=== PATIENT | female | born 1995 | race Caucasian/White ===

== ENCOUNTER 2018-02-12 20:20 | Observation (INO) | payer BC ==
--- NOTE | 2018-02-12 20:34 | PDOC ---
Rapid Medical Evaluation Time Seen by Provider: 02/12/18 20:28 Medical Evaluation: Allergies Allergy/AdvReac Type Severity Reaction Status Date / Time No Known Allergies Allergy Verified 12/02/15 02:22 02/12/18 20:34 I have performed a brief in-person evaluation of this patient. The patient presents with a chief complaint of: SWELLING and pain to 2 lesions on arms- right arm with core/ left upper arm Pertinent physical exam findings: SWOLLEN / RED AND FIRM LESION TO RIGHT FOREARM with streaking up past elbow. Sensation intact I have ordered the following: CBC, cmp/ Upreg The patient will proceed to the ED for further evaluation. 02/12/18 20:37
[2018-02-12 21:24] LABS: BASO % 0.4 % (0-2.0); EOS % 2.9 % (0-4.5); HEMATOCRIT 42.2 % (32.4-45.2); HEMOGLOBIN 14.6 GM/dL (10.7-15.3); LYMPH % 36.8 % (8-40); MCH 30.5 pg (25.7-33.7); MCHC 34.6 g/dl (32.0-36.0); MEAN CELL VOLUME 88.1 fl (80-96); MEAN PLT VOLUME 9.4 fl (7.5-11.1); MONO % 8.8 % (3.8-10.2); NEUT % 51.1 % (42.8-82.8); PLATELET COUNT 255 K/MM3 (134-434); RBC 4.79 M/mm3 (3.60-5.2); RDW 12.8 % (11.6-15.6); WHITE BLOOD COUNT 8.9 K/mm3 (4.0-10.0)
[2018-02-12 21:56] LABS: ALBUMIN 4.2 g/dl (3.4-5.0); ANION GAP 5 (8-16); BLOOD UREA NITROGEN 10 mg/dL (7-18); CALCIUM 8.7 mg/dL (8.5-10.1); CHLORIDE 106 mmol/L (98-107); CO2 28 mmol/L (21-32); CREATININE 0.8 mg/dL (0.55-1.02); GLUCOSE,RANDOM 115 mg/dL (74-106); POTASSIUM 3.8 mmol/L (3.5-5.1); SGOT/AST 16 U/L (15-37); SGPT/ALT 20 U/L (12-78); SODIUM 139 mmol/L (136-145)
[2018-02-12] MEDS ORDERED: ACETAMINOPHEN 1000 MG/100 ML VIAL (NON FORMULARY) IVPB ONE (21:57)
[2018-02-12] MEDS ORDERED: CLINDAMYCIN IVPB 300 MG in DEXTROSE 5%-WATER - 48 ML IVPB ONE (21:57)
[2018-02-12] MEDS ORDERED: SODIUM CHLORIDE 1,000 ML IV STA (21:57)
[2018-02-12 21:58] LABS: ALK PHOS 86 U/L (45-117); BILIRUBIN,TOTAL 0.3 mg/dL (0.2-1.0); TOT PROT 7.7 g/dl (6.4-8.2)
[2018-02-12] MEDS ORDERED: ACETAMINOPHEN INJECTION 100 ML IVPB ONE (22:09)
--- NOTE | 2018-02-12 23:15 | PDOC ---
History of Present Illness <Rock Vela - Last Filed: 02/13/18 00:15> - History of Present Illness Initial Comments: 02/12/18 23:11 "The patient is a 22 year old female, with no significant past medical history, who presents to the emergency department with, a rash on her right forearm and left arm. As per patient, she woke up this morning with a rash and swelling to her right forearm which has since been worsening and streaking upward. She describes her right arm to feel like deadweight with mild itchiness and pain. She reports when leaving to come into the ED she noticed another rash on her left arm which is the shape of a starfish. She reports two weeks ago she had similar symptoms on her face and collarbone which she went to an urgent care for and was given an unknown topical cream and Benadryl. Pt denies seeing any insects. Denies any new medications/soaps/detergents. Denies h/o allergies. She denies any recent outdoor activity. She denies any recent injury. She denies recent fevers, chills, headache or dizziness. She denies recent nausea, vomit, diarrhea or constipation. She denies recent dysuria, frequency, urgency or hematuria. She denies recent chest pain or shortness of breath. Allergies: NKA Past surgical history: None reported. Social history: Nonsmoker. Denies EtOH use and recreational drug use. " <Ramesh Jon - Last Filed: 02/13/18 02:30> - General Chief Complaint: Rash Stated Complaint: RASH Time Seen by Provider: 02/12/18 20:28 Past History <Rock Vela - Last Filed: 02/13/18 00:15> - Past Medical History COPD: No Disorders: (dysmennorrhea and irregular menses) - Immunization History Immunization Up to Date: Yes - Suicide/Smoking/Psychosocial Hx Smoking History: Never smoked Hx Alcohol Use: No Substance Use Type: None <Ramesh Jon - Last Filed: 02/13/18 02:30> - Past Medical History Allergies/Adverse Reactions: Allergies Allergy/AdvReac Type Severity Reaction Status Date / Time No Known Allergies Allergy Verified 12/02/15 02:22 Home Medications: Ambulatory Orders NK [No Known Home Medication] 02/13/18 Review of Systems - Review of Systems Comments:: 02/12/18 23:12 "GENERAL/CONSTITUTIONAL: No fever or chills. No weakness. HEAD, EYES, EARS, NOSE AND THROAT: No change in vision. No ear pain or discharge. No sore throat. CARDIOVASCULAR: No chest pain or shortness of breath. RESPIRATORY: No cough, wheezing, or hemoptysis. GASTROINTESTINAL: No nausea, vomiting, diarrhea or constipation. GENITOURINARY: No dysuria, frequency, or change in urination. MUSCULOSKELETAL: No joint or muscle swelling or pain. No neck or back pain. +SKIN: Rash on right forearm and left arm. NEUROLOGIC: No headache, vertigo, loss of consciousness, or change in strength/ sensation. ENDOCRINE: No increased thirst. No abnormal weight change. HEMATOLOGIC/LYMPHATIC: No anemia, easy bleeding, or history of blood clots. ALLERGIC/IMMUNOLOGIC: No hives or skin allergy. " <Ramesh Jon - Last Filed: 02/13/18 02:30> *Physical Exam - Vital Signs Last Vital Signs Temp Pulse Resp BP Pulse Ox 98.4 F 91 H 18 124/71 99 02/12/18 23:42 02/12/18 23:42 02/12/18 23:42 02/12/18 23:42 02/12/18 23:42 <Rock Vela - Last Filed: 02/13/18 00:15> - Vital Signs Last Vital Signs Temp Pulse Resp BP Pulse Ox 99.7 F H 132 H 18 143/95 97 02/12/18 20:32 02/12/18 20:32 02/12/18 20:32 02/12/18 20:32 02/12/18 20:32 - Physical Exam Comments: 02/12/18 23:13 "GENERAL: Awake, alert, and fully oriented, in no acute distress. HEAD: No signs of trauma EYES: PERRLA, EOMI, sclera anicteric, conjunctiva clear ENT: Auricles normal inspection, hearing grossly normal, nares patent, oropharynx clear without exudates. Moist mucosa NECK: Nontender, no stepoffs, Normal ROM, supple, no lymphadenopathy, JVD, or masses LUNGS: Breath sounds equal, clear to auscultation bilaterally. No wheezes, and no crackles HEART: Regular rate and rhythm, normal S1 and S2, no murmurs, rubs or gallops ABDOMEN: Soft, nontender, normoactive bowel sounds. No guarding, no rebound. No masses EXTREMITIES: Normal range of motion, no edema. No clubbing or cyanosis. No cords, erythema, or tenderness NEUROLOGICAL: Cranial nerves II through XII intact. 5/5 strength and sensation in all extremities, Normal speech, normal gait, normal cerebellar function SKIN: + L forearm with cluster of vesicles and singular lesion with crusting, with surrounding erythema streaking upwards. + R arm with punctate lesion with crusting and outward streaking erythema " <Ramesh Jon - Last Filed: 02/13/18 02:30> ED Treatment Course - LABORATORY CBC & Chemistry Diagram: 02/12/18 21:11 02/12/18 21:11 - ADDITIONAL ORDERS Additional order review: Laboratory Results 02/12/18 02/12/18 21:11 21:00 Sodium 139 Potassium 3.8 Chloride 106 Carbon Dioxide 28 Anion Gap 5 L BUN 10 Creatinine 0.8 Creat Clearance w eGFR > 60 Random Glucose 115 H Calcium 8.7 Total Bilirubin 0.3 D AST 16 ALT 20 Alkaline Phosphatase 86 Total Protein 7.7 Albumin 4.2 Urine HCG, Qual Negative 02/12/18 21:11 RBC 4.79 MCV 88.1 MCHC 34.6 RDW 12.8 MPV 9.4 Neutrophils % 51.1 D Lymphocytes % 36.8 D Monocytes % 8.8 Eosinophils % 2.9 D Basophils % 0.4 D - Medications Given in the ED: ED Medications Discontinued Medications Generic Name Dose Route Start Last Admin Trade Name Dashawnq PRN Reason Stop Dose Admin Acetaminophen 1,000 mg 02/12/18 21:57 02/12/18 22:14 Ofirmev Injection - IVPB 02/12/18 21:58 1,000 mg ONCE ONE Administration Clindamycin Phosphate 300 mg/ 50 mls @ 100 mls/hr 02/12/18 21:57 02/12/18 22: 54 Dextrose IVPB 02/12/18 22:26 100 mls/hr ONCE ONE Administration Protocol Sodium Chloride 1,000 mls @ 1,000 mls/hr 02/12/18 21:57 02/12/18 22:14 Normal Saline - IV 02/12/18 22:56 1,000 mls/hr ASDIR STA Administration <Rock Vela - Last Filed: 02/13/18 00:15> - LABORATORY CBC & Chemistry Diagram: 02/12/18 21:11 02/12/18 21:11 - ADDITIONAL ORDERS Additional order review: Laboratory Results 02/12/18 02/12/18 21:11 21:00 Sodium 139 Potassium 3.8 Chloride 106 Carbon Dioxide 28 Anion Gap 5 L BUN 10 Creatinine 0.8 Creat Clearance w eGFR > 60 Random Glucose 115 H Calcium 8.7 Total Bilirubin 0.3 D AST 16 ALT 20 Alkaline Phosphatase 86 Total Protein 7.7 Albumin 4.2 Urine HCG, Qual Negative 02/12/18 21:11 RBC 4.79 MCV 88.1 MCHC 34.6 RDW 12.8 MPV 9.4 Neutrophils % 51.1 D Lymphocytes % 36.8 D Monocytes % 8.8 Eosinophils % 2.9 D Basophils % 0.4 D - Medications Given in the ED: ED Medications Discontinued Medications Generic Name Dose Route Start Last Admin Trade Name Freq PRN Reason Stop Dose Admin Acetaminophen 1,000 mg 02/12/18 21:57 02/12/18 22:14 Ofirmev Injection - IVPB 02/12/18 21:58 1,000 mg ONCE ONE Administration Clindamycin Phosphate 300 mg/ 50 mls @ 100 mls/hr 02/12/18 21:57 02/12/18 22: 54 Dextrose IVPB 02/12/18 22:26 100 mls/hr ONCE ONE Administration Protocol Sodium Chloride 1,000 mls @ 1,000 mls/hr 02/12/18 21:57 02/12/18 22:14 Normal Saline - IV 02/12/18 22:56 1,000 mls/hr ASDIR STA Administration <Ou,Ramesh - Last Filed: 02/13/18 02:30> Medical Decision Making - Medical Decision Making 02/12/18 23:14 22 F with rash to BUE. Exam consistent with cellulitis + lymphangitis, possibly 2/2 infected insect bites. Pt also exhibiting signs of systemic illness, with tachycardia and low-grade temp. - Labs, cultures - IVF, tylenol - Clindamycin 02/13/18 02:29 Pt admitted to hospitalist <Ou,Ramesh - Last Filed: 02/13/18 02:30> *DC/Admit/Observation/Transfer - Attestations Scribe Attestion: 02/13/18 00:15 Documentation prepared by Rock Vela, acting as medical laboratory technical officer for Ramesh Jon MD. <Rock Vela - Last Filed: 02/13/18 00:15> - Discharge Dispostion Decision to Admit order: Yes - Attestations Physician Attestion: 02/13/18 02:30 I, Dr. Ramesh Jon MD, attest that this document has been prepared under my direction and personally reviewed by me in its entirety. I further attest, that it accurately reflects all work, treatment, procedures and medical decision -making performed by me. <Ramesh Jon - Last Filed: 02/13/18 02:30> Diagnosis at time of Disposition: Cellulitis
--- NOTE | 2018-02-13 00:47 | HP ---
CHIEF COMPLAINT: rash on both arms PCP: None HISTORY OF PRESENT ILLNESS: 22F w/ no significant PMH who presents with b/l arm rashes since this morning. Per patient, she first noticed a rash on her right forearm this morning upon awakening. Since then, it has gotten progressively larger and has travelled up her medial arm. It is associated with a feeling of "deadweight" in her right arm as well as some pruritis. She denies pain. This afternoon, she noticed a linear rash on her left lateral arm as well which prompted her to come to the hospital. Pt reports that she first developed a different rash about two weeks ago on her face and collarbone. She went to an urgent care center, was prescribed a steroid cream and benadryl, which resolved the rash. Three days ago , she developed another rash on her left eyelid, and after using a different unknown cream, the rash resolved again. Pt denies fevers, chills, headache, chest pain, SOB, abdominal pain, n/v/d/c, and dysuria. She endorses travelling to [place] for . She denies insect bites, injuries to her arms, new lotions/detergents. She has never been sexually active. She takes lo lo estrogen for control, and her LMP was several years ago. ER course was notable for: (1) history (2) physical exam (3) vitals Recent Travel: [place] PAST MEDICAL HISTORY: none PAST SURGICAL HISTORY: none Social History: Smoking: denies Alcohol: denies Drugs: denies Pt lives with family in [place]. 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 Family History: denies. Allergies No Known Allergies Allergy (Verified 12/02/15 02:22) HOME MEDICATIONS: Home Medications Medication Instructions Recorded NK [No Known Home Medication] 02/13/18 REVIEW OF SYSTEMS CONSTITUTIONAL: Absent: fever, chills, diaphoresis, generalized weakness, malaise, loss of appetite, weight change HEENT: Absent: rhinorrhea, nasal congestion, throat pain, throat swelling, difficulty swallowing, mouth swelling, ear pain, eye pain, visual changes CARDIOVASCULAR: Absent: chest pain, syncope, palpitations, irregular heart rate, lightheadedness , peripheral edema RESPIRATORY: Absent: cough, shortness of breath, dyspnea with exertion, orthopnea, wheezing, stridor, hemoptysis GASTROINTESTINAL: Absent: abdominal pain, abdominal distension, nausea, vomiting, diarrhea, constipation, melena, hematochezia GENITOURINARY: Absent: dysuria, frequency, urgency, hesitancy, hematuria, flank pain, genital pain MUSCULOSKELETAL: Absent: myalgia, arthralgia, joint swelling, back pain, neck pain SKIN: Absent: pallor present: rash, itching HEMATOLOGIC/IMMUNOLOGIC: Absent: easy bleeding, easy bruising, lymphadenopathy, frequent infections ENDOCRINE: Absent: unexplained weight gain, unexplained weight loss, heat intolerance, cold intolerance NEUROLOGIC: Absent: headache, focal weakness or paresthesias, dizziness, unsteady gait, seizure, mental status changes, bladder or bowel incontinence PSYCHIATRIC: Absent: anxiety, depression, suicidal or homicidal ideation, hallucinations. PHYSICAL EXAMINATION Vital Signs - 24 hr 02/12/18 02/12/18 20:32 23:42 Temperature 99.7 F H 98.4 F Pulse Rate 132 H Pulse Rate [ 91 H Left Radial] Respiratory 18 18 Rate Blood Pressure 143/95 Blood Pressure 124/71 [Right Arm] O2 Sat by Pulse 97 99 Oximetry (%) GENERAL: young female, awake, alert, and fully oriented, in no acute distress. HEENT: NC, AT LUNGS: CTAB, no wheezing or rales HEART: RRR, no murmurs ABDOMEN: soft, NT, ND UPPER EXTREMITIES: 2+ pulses, warm, well-perfused. No cyanosis. No clubbing. No peripheral edema. LOWER EXTREMITIES: 2+ pulses, warm, well-perfused. No calf tenderness. No peripheral edema. NEUROLOGICAL: Cranial nerves II-XII intact. Normal speech. SKIN: erythematous rash over right dorsal forearm, extending proximally along medial upper arm in streaking pattern. warm to touch. several vesicles present on forearm aspect. non-tender to palpation. Linear rash present on left upper lateral arm in cross pattern with small central scab. no rashes on legs. Laboratory Results - last 24 hr 02/12/18 02/12/18 02/12/18 21:00 21:11 21:11 WBC 8.9 D RBC 4.79 Hgb 14.6 Hct 42.2 MCV 88.1 MCH 30.5 MCHC 34.6 RDW 12.8 Plt Count 255 D MPV 9.4 Absolute Neuts (auto) 4.5 Neutrophils % 51.1 D Lymphocytes % 36.8 D Monocytes % 8.8 Eosinophils % 2.9 D Basophils % 0.4 D Nucleated RBC % 0 Sodium 139 Potassium 3.8 Chloride 106 Carbon Dioxide 28 Anion Gap 5 L BUN 10 Creatinine 0.8 Creat Clearance w eGFR > 60 Random Glucose 115 H Calcium 8.7 Total Bilirubin 0.3 D AST 16 ALT 20 Alkaline Phosphatase 86 Total Protein 7.7 Albumin 4.2 Urine HCG, Qual Negative ASSESSMENT/PLAN: 22F w/ no significant PMH who presents with migratory rashes for past 2 weeks. #migratory rashes -due to migratory nature of rashes in conjunction with lack of pruritis or systemic signs of infection, etiology possibly vasculitis/autoimmune. Initial rash on face possibly malar rash. -f/u KAREN, Anti-DS-DNA, anti-ro, anti-la, ESR, CRP, and RPR -benadryl PRN -rheumatology consulted, Dr. Kimbrough, f/u recs -dermatology consulted, Dr. Bain, f/u recs #HTN -likely 2/2 anxiety in being in ED -trend BPs #FEN/ppx -no IVF -electrolytes wnl -regular diet -no GI ppx indicated -EAM #Dispo -admit to observation Case discussed with attending, Dr. Grider. -Holger Beal MD PGY1 Visit type - Emergency Visit Emergency Visit: Yes Care time: The patient presented to the Emergency Department on the above date and was hospitalized for further evaluation of their emergent condition. - New Patient This patient is new to me today: Yes Date on this admission: 02/13/18 - Critical Care Critical Care patient: No Hospitalist Screening - Colonoscopy Questionnaire Colonoscopy Questionnaire: Colonoscopy Questionnaire - Patient: 50 - 75 years old and never had a screening colonoscopy: Unknown History of colon or rectal polyps, or CA: Unknown History of IBD, Crohn's disease or UC: Unknown History of abdominal radiation therapy as a child: Unknown - Relative: 1 with colon or rectal CA, or polyps at age 60 or younger: Unknown Colon or rectal CA diagnosed at age 45 or younger: Unknown Multiple relatives with colon or rectal CA: Unknown - Outcome: Screening Result: Negative Screen
[2018-02-13] MEDS ORDERED: diphenhydrAMINE HCL 25 MG CAPSULE (FP) PO PRN (02:54)
[2018-02-13 05:56] LABS: BASO % 0.4 % (0-2.0); EOS % 4.6 % (0-4.5); HEMATOCRIT 39.5 % (32.4-45.2); HEMOGLOBIN 13.8 GM/dL (10.7-15.3); MCH 30.7 pg (25.7-33.7); MCHC 34.9 g/dl (32.0-36.0); MEAN CELL VOLUME 87.8 fl (80-96); MEAN PLT VOLUME 9.1 fl (7.5-11.1); MONO % 8.5 % (3.8-10.2); NEUT % 38.5 % (42.8-82.8); PLATELET COUNT 198 K/MM3 (134-434); RBC 4.49 M/mm3 (3.60-5.2); WHITE BLOOD COUNT 6.9 K/mm3 (4.0-10.0)
[2018-02-13 06:20] LABS: ALBUMIN 3.8 g/dl (3.4-5.0); ALK PHOS 77 U/L (45-117); ANION GAP 7 (8-16); BILIRUBIN,TOTAL 0.4 mg/dL (0.2-1.0); BLOOD UREA NITROGEN 8 mg/dL (7-18); CALCIUM 8.6 mg/dL (8.5-10.1); CHLORIDE 108 mmol/L (98-107); CO2 24 mmol/L (21-32); CREATININE 0.6 mg/dL (0.55-1.02); GLUCOSE,RANDOM 95 mg/dL (74-106); POTASSIUM 3.9 mmol/L (3.5-5.1); SGOT/AST 17 U/L (15-37); SGPT/ALT 21 U/L (12-78); SODIUM 139 mmol/L (136-145); TOT PROT 6.9 g/dl (6.4-8.2)
--- NOTE | 2018-02-13 06:53 | PN ---
Teaching Attending Note Name of Resident: Holger Beal ATTENDING PHYSICIAN STATEMENT I saw and evaluated the patient. I reviewed the resident's note and discussed the case with the resident. I agree with the resident's findings and plan as documented. SUBJECTIVE: Patient is a 22 year old woman no significant PMH who presents with bilateral nonpruritic arm rashes since this morning. Per patient, she first noticed a rash on her right forearm this morning upon awakening. Since then, it has gotten progressively larger and has travelled up her medial arm. It is associated with a feeling of "deadweight" in her right arm. She first developed a facial malar rash about two weeks ago and also on her collarbone. She went to an urgent care center, was prescribed a steroid cream and benadryl, which resolved the rash. Three days ago, she developed another rash on her left eyelid , and after using a different unknown cream, the rash resolved again. Shet denies fevers, chills, headache, chest pain, SOB, abdominal pain, n/v/d/c, and dysuria. She denies insect bites, injuries to her arms, new lotions/ detergents. She has never been sexually active but curiously is on an estrogen control pill for over 2 years. 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 No family history of autoimmune disease. OBJECTIVE: Alert an in no distress. Vital Signs Period Temp Pulse Resp BP Sys/Mahan Pulse Ox Last 24 Hr 98.4 F-99.7 F 91-132 18-18 124-143/71-95 97-99 HEENT: No Jaundice, eye redness or discharge, PERRLA, EOMI. Normocephalic, atraumatic. External ears are normal and hearing is grossly intact. No nasal discharge. Neck: Supple, nontender. No palpable adenopathy or thyromegaly. No JVD Chest: Good effort. Clear to auscultation and percussion. Heart: Regular. No S3, rub or murmur Abdomen: Not distended, soft, nontender and no HSM. No rebound or guarding. Normoactive bowel sounds. Ext: Peripheral pulses intact. No leg edema. Skin: Erythematous macular rash on arms and back. Neuro: Alert. Oriented x3. CN 2-12 grossly intact. Sensation grossly intact in all four extremities and DTR are symmetric. Current Medications Generic Name Dose Route Start Last Admin Trade Name Freq PRN Reason Stop Dose Admin Diphenhydramine HCl 50 mg 02/13/18 02:54 Benadryl - PO Q6H PRN itching Home Medications Medication Instructions Recorded NK [No Known Home Medication] 02/13/18 Laboratory Results - last 24 hr 02/12/18 02/12/18 02/12/18 21:00 21:11 21:11 WBC 8.9 D RBC 4.79 Hgb 14.6 Hct 42.2 MCV 88.1 MCH 30.5 MCHC 34.6 RDW 12.8 Plt Count 255 D MPV 9.4 Absolute Neuts (auto) 4.5 Neutrophils % 51.1 D Lymphocytes % 36.8 D Monocytes % 8.8 Eosinophils % 2.9 D Basophils % 0.4 D Nucleated RBC % 0 Sodium 139 Potassium 3.8 Chloride 106 Carbon Dioxide 28 Anion Gap 5 L BUN 10 Creatinine 0.8 Creat Clearance w eGFR > 60 Random Glucose 115 H Calcium 8.7 Total Bilirubin 0.3 D AST 16 ALT 20 Alkaline Phosphatase 86 Total Protein 7.7 Albumin 4.2 Urine HCG, Qual Negative 02/13/18 02/13/18 05:50 05:50 WBC 6.9 RBC 4.49 Hgb 13.8 Hct 39.5 MCV 87.8 MCH 30.7 MCHC 34.9 RDW 13.0 Plt Count 198 D MPV 9.1 Absolute Neuts (auto) 2.7 Neutrophils % 38.5 L D Lymphocytes % 48.0 H D Monocytes % 8.5 Eosinophils % 4.6 H Basophils % 0.4 Nucleated RBC % 0 Sodium 139 Potassium 3.9 Chloride 108 H Carbon Dioxide 24 Anion Gap 7 L BUN 8 Creatinine 0.6 Creat Clearance w eGFR > 60 Random Glucose 95 Calcium 8.6 Total Bilirubin 0.4 D AST 17 ALT 21 Alkaline Phosphatase 77 Total Protein 6.9 Albumin 3.8 Urine HCG, Qual ASSESSMENT AND PLAN: 1. Migrating macular rash - Etiology is unclear, but consistent with vasculitis associated with autoimmune disease. Will do basic work up for autoimmune disease including KAREN, antidsDNA, ESR, CRP, anti rho, etc. Will also test for Neisseria gonorrhoeae and syphilis. Refer to dermatology and rheumatology. No need for antibiotics. Benadryl PRN. 2. DVT prophylaxis - Heparin 5000u sq tid 3. Advance directives - Full code
[2018-02-13 09:44] VITALS: BP 114/70; PULSE 87; TEMP 98.3
--- NOTE | 2018-02-13 10:29 | DS ---
Physical Exam: SUBJECTIVE: Patient seen and examined OBJECTIVE: Vital Signs Period Temp Pulse Resp BP Sys/Mahan Pulse Ox Last 24 Hr 98.3 F-99.7 F 87-132 18-18 114-143/70-95 97-99 PHYSICAL EXAM GENERAL: The patient is awake, alert, and fully oriented, in no acute distress. HEAD: Normal with no signs of trauma. EYES: PERRL, extraocular movements intact, sclera anicteric, conjunctiva clear. ENT: Ears normal, nares patent, oropharynx clear without exudates, moist mucous membranes. NECK: Trachea midline, full range of motion, supple. LUNGS: Breath sounds equal, clear to auscultation bilaterally, no wheezes, no crackles, no accessory muscle use. HEART: Regular rate and rhythm, S1, S2 without murmur, rub or gallop. ABDOMEN: Soft, nontender, nondistended, normoactive bowel sounds, no guarding, no rebound, no hepatosplenomegaly, no masses. EXTREMITIES: 2+ pulses, warm, well-perfused, no edema. NEUROLOGICAL: Cranial nerves II through XII grossly intact. Normal speech, gait not observed. PSYCH: Normal mood, normal affect. SKIN: Warm, dry, normal turgor, no rashes or lesions noted. LABS Laboratory Results - last 24 hr 02/12/18 02/12/18 02/12/18 21:00 21:11 21:11 WBC 8.9 D RBC 4.79 Hgb 14.6 Hct 42.2 MCV 88.1 MCH 30.5 MCHC 34.6 RDW 12.8 Plt Count 255 D MPV 9.4 Absolute Neuts (auto) 4.5 Neutrophils % 51.1 D Lymphocytes % 36.8 D Monocytes % 8.8 Eosinophils % 2.9 D Basophils % 0.4 D Nucleated RBC % 0 ESR Sodium 139 Potassium 3.8 Chloride 106 Carbon Dioxide 28 Anion Gap 5 L BUN 10 Creatinine 0.8 Creat Clearance w eGFR > 60 Random Glucose 115 H Calcium 8.7 Total Bilirubin 0.3 D AST 16 ALT 20 Alkaline Phosphatase 86 C-Reactive Protein Total Protein 7.7 Albumin 4.2 Urine HCG, Qual Negative 02/13/18 02/13/18 02/13/18 05:50 05:50 05:50 WBC 6.9 RBC 4.49 Hgb 13.8 Hct 39.5 MCV 87.8 MCH 30.7 MCHC 34.9 RDW 13.0 Plt Count 198 D MPV 9.1 Absolute Neuts (auto) 2.7 Neutrophils % 38.5 L D Lymphocytes % 48.0 H D Monocytes % 8.5 Eosinophils % 4.6 H Basophils % 0.4 Nucleated RBC % 0 ESR Sodium 139 Potassium 3.9 Chloride 108 H Carbon Dioxide 24 Anion Gap 7 L BUN 8 Creatinine 0.6 Creat Clearance w eGFR > 60 Random Glucose 95 Calcium 8.6 Total Bilirubin 0.4 D AST 17 ALT 21 Alkaline Phosphatase 77 C-Reactive Protein < 0.3 Total Protein 6.9 Albumin 3.8 Urine HCG, Qual 02/13/18 05:50 WBC RBC Hgb Hct MCV MCH MCHC RDW Plt Count MPV Absolute Neuts (auto) Neutrophils % Lymphocytes % Monocytes % Eosinophils % Basophils % Nucleated RBC % ESR 9 Sodium Potassium Chloride Carbon Dioxide Anion Gap BUN Creatinine Creat Clearance w eGFR Random Glucose Calcium Total Bilirubin AST ALT Alkaline Phosphatase C-Reactive Protein Total Protein Albumin Urine HCG, Qual HOSPITAL COURSE: Date of Admission:02/13/18 Date of Discharge: 02/13/18 Discharge Summary Reason For Visit: CELLULITIS Current Active Problems Cellulitis (Acute) Condition: Stable - Instructions Diet, Activity, Other Instructions: Please return to the ED for any new, persistent, or worsening symptoms. Follow up with your PCP (referral enclosed) next Sunday for follow up on labs Take antibiotics as directed and until completed Keep appt today with Dermatology (referral and address enclosed) Make appt with Rhumatology for basic autoimmune work up, Dr. Kimbrough referral information enclosed, appt made now for 02/26 1215, call office if need to change. Referrals: Heath Lopez MD [Staff Physician] - 02/20/18 Gonzales Kimbrough MD [Staff Physician] - 1 Week (Follow up next week, make an appt to see, tentative appt make 02/26 1215) Tawana Bain [Staff Physician] - 02/13/18 (Follow with Dermatology today ) Disposition: HOME - Home Medications Comprehensive Discharge Medication List: Ambulatory Orders Doxycycline Hyclate [Vibramycin] 100 mg PO BID #20 capsule 02/13/18
== END 2018-02-13 10:29 | disposition home or self-care (01) ==
LOC: JER 20:20 → JERBED 02-13 02:31 → UNDOADMOB 02-13 02:33 → JERBED 02-13 02:33
PROVIDERS: ADMIT Internal Medicine; ATTEND Nurse Practitioner Acute Care
PROC: 3E03329 Introduction of Other Anti-infective into Peripheral Vein, Percutaneous Approach (ICD-10-PCS; principal; 2018-02-13)
PROC: 3E033NZ Introduction of Analgesics, Hypnotics, Sedatives into Peripheral Vein, Percutaneous Approach (ICD-10-PCS; 2018-02-13)
DX: L03.114 Cellulitis of left upper limb (principal); L03.113 Cellulitis of right upper limb; R50.9 Fever, unspecified; R00.0 Tachycardia, unspecified
CPT/HCPCS: 36415; 80053; 84703; 85025; 85651; 86140; 86225; 86235; 86593; 86618; 99281-25; G0378; J0131; J7030

== ENCOUNTER 2024-12-22 06:29 | Emergency (ER) | payer BC, OTHER ==
[2024-12-22] MEDS ORDERED: ACETAMINOPHEN INJECTION 100 ML ONE (07:24)
[2024-12-22] MEDS: ACETAMINOPHEN 1000 MG/100 ML BAG IVPB ONE (07:41)
[2024-12-22 07:55] LABS: ABSOLUTE IMMATURE GRANULOCYTES 0.03 x10^3/uL (0.0-0.031); BASOPHILS # 0.03 x10^3/uL (0.01-0.08); EOSINOPHIL % 0.6 % (0.7-5.8); EOSINOPHILS # 0.04 x10^3/uL (0.04-0.36); HEMATOCRIT 40.9 % (34.1-44.9); HEMOGLOBIN 13.3 g/dL (11.2-15.7); MCHC 32.5 g/dl (32.2-35.5); MEAN CELL VOLUME 93.6 fl (79.4-94.8); MEAN PLT VOLUME 11.5 fl (9.4-12.3); MONOCYTE # 0.59 x10^3/uL (0.24-0.86); MONOCYTE % 8.6 % (4.7-12.5); PLATELET COUNT 175 x10^3/uL (182-369); RDW 13.1 % (12.1-16.5)
[2024-12-22 08:18] LABS: POTASSIUM 3.7 mmol/L (3.5-5.1)
[2024-12-22 08:20] LABS: INR 0.99 (0.83-1.09); PROTHROMBIN TIME (PATIENT) 10.8 SEC (9.7-13.0)
[2024-12-22 08:21] LABS: CALCIUM 8.6 mg/dL (8.5-10.1)
[2024-12-22 08:22] LABS: ALBUMIN 3.6 g/dl (3.4-5.0); BLOOD UREA NITROGEN 11.5 mg/dL (7-18); MAGNESIUM 1.9 mg/dL (1.8-2.4)
[2024-12-22 08:25] LABS: CREATININE 0.7 mg/dL (0.55-1.3)
[2024-12-22 08:27] LABS: BILIRUBIN,TOTAL 0.3 mg/dL (0.2-1); TOT PROT 6.4 g/dl (6.4-8.2)
[2024-12-22 10:48] LABS: EPI CELLS 9 /uL (0-25.1); HYALINE CASTS 0 /uL (0-3.1); PH,URINE 6.5 (5.0-8.0); URINE APPEARANCE CLEAR; URINE BACTERIA 484 /uL (0-1359); URINE BILIRUBIN NEGATIVE (NEGATIVE); URINE COLOR YELLOW; URINE GLUCOSE (UA) NEGATIVE (NEGATIVE); URINE KETONE NEGATIVE (NEGATIVE); URINE LEUK ESTERASE TRACE (NEGATIVE); URINE NITRITE NEGATIVE (NEGATIVE); URINE PROTEIN NEGATIVE (NEGATIVE); URINE RBC 14 /uL (0-23.9); URINE UROBILINOGEN 0.2 mg/dL (0.2-1.0); URINE WBC 19 /uL (0-25.8)
[2024-12-22 11:33] VITALS: BP 133/64; PULSE 94; RESP 16; TEMP 98.4
== END 2024-12-22 11:35 | disposition home or self-care (01) ==
LOC: JER 06:29
PROC: 3E033NZ Introduction of Analgesics, Hypnotics, Sedatives into Peripheral Vein, Percutaneous Approach (ICD-10-PCS; principal; 2024-12-22)
DX: N83.202 Unspecified ovarian cyst, left side (principal); N39.0 Urinary tract infection, site not specified; R10.84 Generalized abdominal pain
CPT/HCPCS: 36415; 76856-TC; 80053; 81003; 83735; 84703; 85025; 85610; 85730; 86850; 86900; 86901; 87086; 87491; 87591; 87661; 99285-25; J0131